=== PATIENT | male | born 1995 | race Caucasian/White ===

== ENCOUNTER 2018-05-10 21:31 | Emergency (ER) | payer OTHER ==
[2018-05-10] MEDS ORDERED: FLUORESCEIN SODIUM 1 MG STRIP OP ONE ×2 (21:41→21:48)
[2018-05-10] MEDS ORDERED: PROPARACAINE 0.5% 15 ML OPHT DROP ONE ×2 (21:42→21:48)
[2018-05-10 21:44] VITALS: BP 119/77
--- NOTE | 2018-05-10 21:51 | EDPHY ---
H & P Stated Complaint: R EYE PAIN "FEELS LIKE SOMETHINGS IN IT" @ 1600 Time Seen by Provider: 05/10/18 21:49 HPI/ROS: HPI: This is a 23-year-old male who presents with Chief Complaint: R EYE PAIN "FEELS LIKE SOMETHINGS IN IT" @ 1600 Location: Right eye Quality: Foreign body sensation Duration: 6 hr Signs and Symptoms: no fever, no nausea, no vomiting, no photophobia, no noise sensitivity, no neck stiffness, no ear pain, no tinnitus, no nasal congestion, no sinus pressure, no weakness, no radiation, no aura, no vision changes, no headache, no discharge Timing: Acute Severity: [id number] Context: Patient is generally healthy, reports itching and scratching his eye and developing foreign body sensation. He has rinses several times without relief of the foreign body sensation. He was not working around metal or outside. He was inside studying at his desk. Last eye exam was approximately 2 years ago. Tetanus is current. Does not wear contact lenses. Modifying Factors: Rinsed several times without relief of symptoms Comment: ROS: A comprehensive 10 system review of systems is otherwise negative aside from elements mentioned in the history of present illness. MEDICAL/SURGICAL/SOCIAL HISTORY: Medical history: Generally healthy. Does not take any regular medications. Surgical history: Left arm surgery, tonsillectomy Social history: Nonsmoker. Family history noncontributory. General appearance: Nontoxic-appearing, well-developed, well-nourished adult white male, awake alert, cooperative Visual Acuity: noted from Nurse's notes. Pupils: equal round and reactive to light. EOMI Lids: no edema or swelling Skin: no proptosis, no periorbital erythema or swelling, no vesicles Conjunctivae: Mildly injected, no discharge Cornea: exam with fluorescein shows a small amount uptake at the 6 o'clock position Anterior chamber: normal, no hyphema or hypopyon Neuro: Cranial nerves 2-12 grossly intact. Source: Patient, Family (Mother) Exam Limitations: No limitations - Personal History Current Tetanus Diphtheria and Acellular Pertussis (TDAP): Yes - Medical/Surgical History Hx Asthma: No Hx Chronic Respiratory Disease: No Hx Diabetes: No Hx Cardiac Disease: No Hx Renal Disease: No Hx Cirrhosis: No Hx Alcoholism: No Hx HIV/AIDS: No Hx Splenectomy or Spleen Trauma: No Other PMH: L ARM SX, TONSILECTOMY - Social History Smoking Status: Never smoked Constitutional: Initial Vital Signs Temperature (C) 36.2 C 05/10/18 21:34 Heart Rate 44 L 05/10/18 21:34 Respiratory Rate 18 05/10/18 21:34 Blood Pressure 119/77 05/10/18 21:34 O2 Sat (%) 100 05/10/18 21:34 O2 Delivery Mode Room Air Allergies/Adverse Reactions: No Known Allergies Allergy (Unverified 05/10/18 21:40) Home Medications: Medication Instructions Recorded NK [No Known Home Meds] 05/10/18 Medical Decision Making ED Course/Re-evaluation: Vital signs reviewed and stable upon arrival. Tetanus is up-to-date. Foreign body sensation relieved with proparacaine drops Fluorescein uptake consistent with small corneal abrasion. Given tobramycin eyedrops in the emergency room. Follow-up with Ophthalmology. This patient was seen under the supervision of my secondary supervising physician. Differential Diagnosis: Differential diagnosis includes but is not limited to foreign body, restrained, corneal abrasion, conjunctivitis, uveitis, iritis. Departure - Departure Disposition: Home, Routine, Self-Care Clinical Impression: Injury of conjunctiva and corneal abrasion of right eye without foreign body Qualifiers: Encounter type: initial encounter Qualified Code(s): S05.01XA - Injury of conjunctiva and corneal abrasion without foreign body, right eye, initial encounter Condition: Good Instructions: Corneal Abrasion (ED) Additional Instructions: Apply Tobramycin 1-2 drops into your right eye every 4 hr while awake x5 days. Please avoid using your hands to touch your eyes. Wash your hands frequently with mild soap and water. Apply cool compresses for 15-20 minutes at a time several times per day for the next 1-2 days. Take Tylenol 650 mg every 4 hr and/or ibuprofen 600 mg every 8 hr as needed for pain. Follow up with ophthalmology in 5-7 days if no improvement in symptoms. Eye Complaint: Return to the Emergency Department for any increase in eye pain, redness, swelling, discharge or any worsening of your vision. Referrals: URBANO LIU [Primary Care Provider] - As per Instructions Luis De Los Santos MD [Medical Doctor] - As per Instructions
[2018-05-10] MEDS ORDERED: TOBRAMYCIN 0.3% SOLN PREPACK OPHT.BTL TAKEHOME ONE (22:03)
== END 2018-05-10 22:32 | disposition home or self-care (01) ==
DX: S05.01XA Injury of conjunctiva and corneal abrasion without foreign body, right eye, initial encounter (principal); X58.XXXA Exposure to other specified factors, initial encounter; Y92.89 Other specified places as the place of occurrence of the external cause; Y93.89 Activity, other specified; Y99.9 Unspecified external cause status